=== PATIENT | male | born 1965 | race Caucasian/White ===

== ENCOUNTER 2017-06-08 07:35 | Day surgery (SDC) | payer OTHER ==
[~2017-06-08 07:35] MED LIST: DOCU100; FERROUS SULPHATE; FLUO20; HYDACE5; METCAR750 PO; METH10; QUET200; SPIHYD; SULF10OPSA OD
== END 2017-06-08 23:20 | disposition home or self-care (01) ==
LOC: MOI US 07:35
PROC: 07B53ZX Excision of Right Axillary Lymphatic, Percutaneous Approach, Diagnostic (ICD-10-PCS; principal; 2017-06-08)
DX: R59.0 Localized enlarged lymph nodes (principal)
CPT/HCPCS: 38505; 76942; 88305; 88312; A4648

== ENCOUNTER 2019-04-22 15:19 | Emergency (ER) | payer OTHER ==
[~2019-04-22] VITALS: Ht 180.3 cm; Wt 86.2 kg
[~2019-04-22 15:19] MED LIST changes: +ASCO500 PO; -DOCU100; +DOCU100 PO; -FERROUS SULPHATE; +Ferrousul325 MG PO; -HYDACE5; +Hydrocodone-Ap1 EA20 PO; +LEVSOD25 PO; +LITH300ER PO; +MELA3 PO; +MIRALAX17 GM PO; +OMEPRAZOLE20 MG PO; +RISP2 PO; +SERT100 PO; +TRAZ100 PO; +Vitamin D2000 UNIT PO
[2019-04-22 16:22] LABS: BASOPHILS ABSOLUTE AUTO 0.07 K/mm3 (0.00-0.23); BASOPHILS PERCENT AUTO 2 % (0-2); EOSINOPHILS ABSOLUTE AUTO 0.29 K/mm3 (0.00-0.68); EOSINOPHILS PERCENT AUTO 7 % (0-6); Hematocrit 29.2 % (37.0-53.0); Hemoglobin 9.3 g/dL (13.5-17.5); IMMATURE GRAN ABSOLUTE AUTO 0.06 K/mm3 (0.00-0.10); IMMATURE GRAN PERCENT AUTO 1 % (0-1); LYMPHOCYTES ABSOLUTE AUTO 1.84 K/mm3 (0.84-5.20); LYMPHOCYTES PERCENT AUTO 42 % (21-46); MONOCYTES ABSOLUTE AUTO 0.74 K/mm3 (0.16-1.47); MONOCYTES PERCENT AUTO 17 % (4-13); Mean Corpuscular HGB 30.8 pg (26.0-34.0); Mean Corpuscular HGB Conc 31.8 g/dL (31.5-36.5); Mean Corpuscular Volume 97 fL (80-100); Mean Platelet Volume 9.5 fL (9.1-12.4); NEUTROPHILS PERCENT AUTO 32 % (41-73); Platelet Count 277 K/mm3 (150-400); RDW Coefficient Variation 19.7 % (11.7-14.2); RDW Standard Deviation 70.6 fL (35.1-46.3); Red Blood Cell Count 3.02 M/mm3 (4.30-5.90)
[2019-04-22 16:35] LABS: Alanine Aminotransfer (ALT/SGP 29 U/L (12-78); Albumin, Blood 2.2 g/dL (3.4-5.0); Albumin/Globulin Ratio 0.5 (0.8-1.8); Alk Phos 88 U/L (50-136); Anion Gap 0 mmol/L (6-16); Aspartate Aminotrans (AST/SGOT 29 U/L (12-37); Bilirubin, Total 0.2 mg/dL (0.1-1.0); Blood Urea Nitrogen 14 mg/dL (8-24); Bun/Creatinine Ratio 41.9 (12.0-20.0); CO2, Blood 27 mmol/L (21-32); Chloride, Blood 111 mmol/L (98-108); Creatinine, Blood 0.33 mg/dL (0.60-1.20); Globulin, Blood 4.1 g/dL (2.2-4.0); Glomerular Filtration Rate >60 (60-); Glucose, Blood 78 mg/dL (70-99); Potassium, Blood 4.4 mmol/L (3.5-5.5); Sodium, Blood 138 mmol/L (136-145); Total Protein, Blood 6.3 g/dL (6.4-8.2); Troponin I 0.017 ng/mL (0.000-0.040)
[2019-04-22 17:35] LABS: Source, Urine Voided
[2019-04-22 17:41] LABS: Bilirubin, Urine Neg (Neg); Blood, Urine Neg (Neg); Glucose Qualitative, Urine Neg (Neg); Ketones, Urine Neg (Neg); Leukocyte Esterase, Urine 1+ (Neg); Nitrite, Urine Neg (Neg); Protein, Urine 3+ (Neg); Urobilinogen, Urine 3+ (Normal)
[2019-04-22 18:26] LABS: Appearance, Urine Clear (Clear); Color, Urine Yellow (P-Yellow)
[2019-04-22 18:27] LABS: Bacteria Few /hpf; Squamous Epithelial Cells Rare /hpf (Few)
[2019-04-22] MEDS ORDERED: CEPH500 PO (19:00)
== END 2019-04-22 19:30 | disposition home or self-care (01) ==
LOC: ER 15:19
PROVIDERS: Emergency Medicine
DX: N39.0 Urinary tract infection, site not specified (principal); Z88.0 Allergy status to penicillin; Z79.899 Other long term (current) drug therapy; D64.9 Anemia, unspecified; E78.5 Hyperlipidemia, unspecified; I10 Essential (primary) hypertension; G47.30 Sleep apnea, unspecified; E66.9 Obesity, unspecified; F31.9 Bipolar disorder, unspecified; I25.2 Old myocardial infarction; E03.9 Hypothyroidism, unspecified; Z87.891 Personal history of nicotine dependence
CPT/HCPCS: 36415; 71046; 80053; 81001; 84484; 85025; 87081; 87430; 93005; 93010; 96361; 96365; 96375; 99284-25; J0696; J0780; J7030

== ENCOUNTER 2019-05-07 07:19 | Emergency (ER) | payer OTHER ==
[~2019-05-07] VITALS: Ht 180.3 cm; Wt 81.7 kg
[~2019-05-07 07:19] MED LIST changes: +CEPH500 PO
[2019-05-07 08:20] LABS: BASOPHILS ABSOLUTE AUTO 0.07 K/mm3 (0.00-0.23); BASOPHILS PERCENT AUTO 2 % (0-2); EOSINOPHILS PERCENT AUTO 4 % (0-6); Hematocrit 32.4 % (37.0-53.0); Hemoglobin 10.3 g/dL (13.5-17.5); IMMATURE GRAN ABSOLUTE AUTO 0.05 K/mm3 (0.00-0.10); IMMATURE GRAN PERCENT AUTO 1 % (0-1); LYMPHOCYTES ABSOLUTE AUTO 1.89 K/mm3 (0.84-5.20); LYMPHOCYTES PERCENT AUTO 41 % (21-46); MONOCYTES ABSOLUTE AUTO 0.57 K/mm3 (0.16-1.47); MONOCYTES PERCENT AUTO 12 % (4-13); Mean Corpuscular HGB 29.9 pg (26.0-34.0); Mean Corpuscular HGB Conc 31.8 g/dL (31.5-36.5); Mean Corpuscular Volume 94 fL (80-100); Mean Platelet Volume 9.7 fL (9.1-12.4); NEUTROPHILS ABSOLUTE AUTO 1.83 K/mm3 (1.96-9.15); NEUTROPHILS PERCENT AUTO 40 % (41-73); Platelet Count 243 K/mm3 (150-400); RDW Coefficient Variation 18.8 % (11.7-14.2); RDW Standard Deviation 64.7 fL (35.1-46.3); Red Blood Cell Count 3.44 M/mm3 (4.30-5.90); White Blood Cell Count 4.61 K/mm3 (4.00-11.30)
[2019-05-07 08:47] LABS: Alanine Aminotransfer (ALT/SGP 15 U/L (12-78); Albumin, Blood 2.4 g/dL (3.4-5.0); Albumin/Globulin Ratio 0.5 (0.8-1.8); Alk Phos 99 U/L (50-136); Anion Gap 5 mmol/L (6-16); Aspartate Aminotrans (AST/SGOT 18 U/L (12-37); Bilirubin, Total 0.2 mg/dL (0.1-1.0); Blood Urea Nitrogen 14 mg/dL (8-24); Bun/Creatinine Ratio 34.9 (12.0-20.0); CO2, Blood 29 mmol/L (21-32); Calcium, Blood 9.2 mg/dL (8.5-10.1); Chloride, Blood 107 mmol/L (98-108); Globulin, Blood 4.4 g/dL (2.2-4.0); Glomerular Filtration Rate >60 (60-); Glucose, Blood 84 mg/dL (70-99); Sodium, Blood 141 mmol/L (136-145); Total Protein, Blood 6.8 g/dL (6.4-8.2)
== END 2019-05-07 09:47 | disposition home or self-care (01) ==
LOC: ER 07:19
PROVIDERS: Emergency Medicine
DX: R11.2 Nausea with vomiting, unspecified (principal); E86.0 Dehydration; D64.9 Anemia, unspecified; E78.5 Hyperlipidemia, unspecified; I10 Essential (primary) hypertension; G47.30 Sleep apnea, unspecified; F31.9 Bipolar disorder, unspecified; Z88.0 Allergy status to penicillin; Z79.899 Other long term (current) drug therapy
CPT/HCPCS: 36415; 80053; 83690; 85025; 96361; 96374; 99284-25; J2405; J7120

== ENCOUNTER 2019-06-04 09:31 | Emergency (ER) | payer OTHER ==
[~2019-06-04] VITALS: Ht 180.3 cm; Wt 81.7 kg
[2019-06-04 10:25] LABS: BASOPHILS ABSOLUTE AUTO 0.12 K/mm3 (0.00-0.23); BASOPHILS PERCENT AUTO 1 % (0-2); EOSINOPHILS PERCENT AUTO 2 % (0-6); Hematocrit 30.9 % (37.0-53.0); Hemoglobin 9.6 g/dL (13.5-17.5); IMMATURE GRAN ABSOLUTE AUTO 0.19 K/mm3 (0.00-0.10); IMMATURE GRAN PERCENT AUTO 1 % (0-1); LYMPHOCYTES ABSOLUTE AUTO 0.86 K/mm3 (0.84-5.20); LYMPHOCYTES PERCENT AUTO 6 % (21-46); MONOCYTES ABSOLUTE AUTO 0.89 K/mm3 (0.16-1.47); MONOCYTES PERCENT AUTO 6 % (4-13); Mean Corpuscular HGB 29.4 pg (26.0-34.0); Mean Corpuscular HGB Conc 31.1 g/dL (31.5-36.5); Mean Corpuscular Volume 95 fL (80-100); Mean Platelet Volume 9.7 fL (9.1-12.4); NEUTROPHILS ABSOLUTE AUTO 11.72 K/mm3 (1.96-9.15); NEUTROPHILS PERCENT AUTO 83 % (41-73); Platelet Count 197 K/mm3 (150-400); RDW Coefficient Variation 20.7 % (11.7-14.2); RDW Standard Deviation 71.9 fL (35.1-46.3); Red Blood Cell Count 3.26 M/mm3 (4.30-5.90); White Blood Cell Count 14.08 K/mm3 (4.00-11.30)
[2019-06-04 10:39] LABS: Troponin I 0.017 ng/mL (0.000-0.040)
[2019-06-04 10:40] LABS: Alanine Aminotransfer (ALT/SGP 23 U/L (12-78); Albumin, Blood 2.4 g/dL (3.4-5.0); Albumin/Globulin Ratio 0.6 (0.8-1.8); Alk Phos 105 U/L (50-136); Anion Gap 2 mmol/L (6-16); Aspartate Aminotrans (AST/SGOT 28 U/L (12-37); Bilirubin, Total 0.2 mg/dL (0.1-1.0); Blood Urea Nitrogen 14 mg/dL (8-24); CO2, Blood 29 mmol/L (21-32); Calcium, Blood 8.9 mg/dL (8.5-10.1); Chloride, Blood 110 mmol/L (98-108); Creatinine, Blood 0.44 mg/dL (0.60-1.20); Globulin, Blood 4.2 g/dL (2.2-4.0); Glomerular Filtration Rate >60 (60-); Glucose, Blood 98 mg/dL (70-99); Potassium, Blood 4.2 mmol/L (3.5-5.5); Sodium, Blood 141 mmol/L (136-145); Total Protein, Blood 6.6 g/dL (6.4-8.2)
[2019-06-04 11:31] LABS: Source, Urine Clean Catch
[2019-06-04 11:49] LABS: Bilirubin, Urine Neg (Neg); Blood, Urine Neg (Neg); Glucose Qualitative, Urine Neg (Neg); Ketones, Urine 1+ (Neg); Leukocyte Esterase, Urine 1+ (Neg); Nitrite, Urine Neg (Neg); Protein, Urine 3+ (Neg); Specific Gravity, Urine 1.015 (1.003-1.022); Urobilinogen, Urine 2+ (Normal); pH, Urine 6.5 (5.0-8.0)
[2019-06-04 12:01] LABS: Appearance, Urine Clear (Clear); Color, Urine Yellow (P-Yellow)
[2019-06-04 12:04] LABS: Bacteria Few /hpf; Red Blood Cells, Urine 0-2 /hpf (0-2); Squamous Epithelial Cells Few /hpf (Few)
== END 2019-06-04 12:25 | disposition home or self-care (01) ==
LOC: ER 09:31
PROVIDERS: Emergency Medicine
DX: R55 Syncope and collapse (principal); S80.12XA Contusion of left lower leg, initial encounter; S80.11XA Contusion of right lower leg, initial encounter; I10 Essential (primary) hypertension; E78.5 Hyperlipidemia, unspecified; D64.9 Anemia, unspecified; G47.30 Sleep apnea, unspecified; F31.9 Bipolar disorder, unspecified; E66.9 Obesity, unspecified; Z87.891 Personal history of nicotine dependence; Z68.25 Body mass index [BMI] 25.0-25.9, adult; Z79.899 Other long term (current) drug therapy; W18.30XA Fall on same level, unspecified, initial encounter
CPT/HCPCS: 36415; 71045; 80053; 81001; 84484; 85025; 87086; 93005; 93010; 96360; 96361; 99284-25; A9270; J7030

== ENCOUNTER 2019-10-23 23:29 | Observation (INO) | payer OTHER ==
[~2019-10-23] VITALS: Ht 177.8 cm; Wt 73.9 kg
[2019-10-23 23:44] LABS: BASOPHILS ABSOLUTE AUTO 0.08 K/mm3 (0.00-0.23); BASOPHILS PERCENT AUTO 1 % (0-2); EOSINOPHILS ABSOLUTE AUTO 0.33 K/mm3 (0.00-0.68); EOSINOPHILS PERCENT AUTO 5 % (0-6); Hematocrit 27.9 % (37.0-53.0); Hemoglobin 8.4 g/dL (13.5-17.5); IMMATURE GRAN ABSOLUTE AUTO 0.05 K/mm3 (0.00-0.10); IMMATURE GRAN PERCENT AUTO 1 % (0-1); LYMPHOCYTES ABSOLUTE AUTO 1.34 K/mm3 (0.84-5.20); LYMPHOCYTES PERCENT AUTO 18 % (21-46); MONOCYTES ABSOLUTE AUTO 0.61 K/mm3 (0.16-1.47); MONOCYTES PERCENT AUTO 8 % (4-13); Mean Corpuscular HGB 27.8 pg (26.0-34.0); Mean Corpuscular HGB Conc 30.1 g/dL (31.5-36.5); Mean Corpuscular Volume 92 fL (80-100); Mean Platelet Volume 9.6 fL (9.1-12.4); NEUTROPHILS ABSOLUTE AUTO 4.96 K/mm3 (1.96-9.15); NEUTROPHILS PERCENT AUTO 67 % (41-73); Platelet Count 136 K/mm3 (150-400); RDW Coefficient Variation 20.6 % (11.7-14.2); RDW Standard Deviation 70.4 fL (35.1-46.3); Red Blood Cell Count 3.02 M/mm3 (4.30-5.90); White Blood Cell Count 7.37 K/mm3 (4.00-11.30)
[2019-10-24 00:06] LABS: Alanine Aminotransfer (ALT/SGP 24 U/L (12-78); Albumin, Blood 2.7 g/dL (3.4-5.0); Albumin/Globulin Ratio 0.7 (0.8-1.8); Alk Phos 81 U/L (50-136); Anion Gap 4 mmol/L (6-16); Aspartate Aminotrans (AST/SGOT 17 U/L (12-37); Bilirubin, Total 0.2 mg/dL (0.1-1.0); Blood Urea Nitrogen 22 mg/dL (8-24); Bun/Creatinine Ratio 44.4 (12.0-20.0); CO2, Blood 28 mmol/L (21-32); Calcium, Blood 8.7 mg/dL (8.5-10.1); Chloride, Blood 110 mmol/L (98-108); Globulin, Blood 3.8 g/dL (2.2-4.0); Glomerular Filtration Rate >60 (60-); Glucose, Blood 83 mg/dL (70-99); Potassium, Blood 4.6 mmol/L (3.5-5.5); Sodium, Blood 142 mmol/L (136-145); Total Protein, Blood 6.5 g/dL (6.4-8.2); Troponin I <0.015 ng/mL (0.000-0.040)
--- NOTE | 2019-10-24 06:10 | NUR ---
END OF SHIFT SUMMARY PT TO UNIT FROM ED. A&O X4. SLID OVER INTO PCU BED. NSR 60'S-70'S. VSS. PT ON 3L NC. SPO2 > 95%. NS RUNNING AT 75 MLS/HR. HR HAS REMAINED STABLE IN THE 70'S POST ADMISSION AND HAS BEEN RESTING QUIETLY. ADMISSION PACKET COMPLETED. PT HAS DENIED DIZZINESS OR SYNCOPE POST ARRIVAL TO UNIT. WILL CONTINUE TO MONITOR UNTIL END OF SHIFT. CALL LIGHT IN REACH.
[2019-10-24 11:42] LABS: BASOPHILS ABSOLUTE AUTO 0.08 K/mm3 (0.00-0.23); BASOPHILS PERCENT AUTO 1 % (0-2); EOSINOPHILS ABSOLUTE AUTO 0.34 K/mm3 (0.00-0.68); EOSINOPHILS PERCENT AUTO 4 % (0-6); Hematocrit 33.1 % (37.0-53.0); Hemoglobin 10.2 g/dL (13.5-17.5); IMMATURE GRAN ABSOLUTE AUTO 0.04 K/mm3 (0.00-0.10); IMMATURE GRAN PERCENT AUTO 1 % (0-1); LYMPHOCYTES ABSOLUTE AUTO 1.31 K/mm3 (0.84-5.20); LYMPHOCYTES PERCENT AUTO 15 % (21-46); MONOCYTES ABSOLUTE AUTO 0.44 K/mm3 (0.16-1.47); MONOCYTES PERCENT AUTO 5 % (4-13); Mean Corpuscular HGB 28.3 pg (26.0-34.0); Mean Corpuscular HGB Conc 30.8 g/dL (31.5-36.5); Mean Corpuscular Volume 92 fL (80-100); Mean Platelet Volume 9.6 fL (9.1-12.4); NEUTROPHILS ABSOLUTE AUTO 6.33 K/mm3 (1.96-9.15); NEUTROPHILS PERCENT AUTO 74 % (41-73); Platelet Count 160 K/mm3 (150-400); RDW Coefficient Variation 20.4 % (11.7-14.2); RDW Standard Deviation 68.5 fL (35.1-46.3); White Blood Cell Count 8.54 K/mm3 (4.00-11.30)
[2019-10-24 12:04] LABS: Alanine Aminotransfer (ALT/SGP 25 U/L (12-78); Albumin/Globulin Ratio 0.8 (0.8-1.8); Alk Phos 95 U/L (50-136); Anion Gap 4 mmol/L (6-16); Aspartate Aminotrans (AST/SGOT 20 U/L (12-37); Bilirubin, Total 0.4 mg/dL (0.1-1.0); Blood Urea Nitrogen 16 mg/dL (8-24); Bun/Creatinine Ratio 34.6 (12.0-20.0); CO2, Blood 29 mmol/L (21-32); Calcium, Blood 9.4 mg/dL (8.5-10.1); Chloride, Blood 110 mmol/L (98-108); Creatinine, Blood 0.46 mg/dL (0.60-1.20); Glomerular Filtration Rate >60 (60-); Glucose, Blood 80 mg/dL (70-99); Potassium, Blood 3.8 mmol/L (3.5-5.5); Sodium, Blood 143 mmol/L (136-145)
--- NOTE | 2019-10-24 12:05 | NUR ---
Patient is sitting up in bed and alert. Patient's spouse, Delia, enters patient's rm shortly after I arrive. They talk with me about patient's medical issues and the current struggle with his low BP. They tell me about patient's 7 yrs in the [employer], patient's many near experiences, their granddaugther's miraculous healing from blindness, and the challenges up ahead. They talk about their enmanuel and how they lean into God, their bahai family and biological family for strength. 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 Patient responds well and shows signs of reduced stress. I will continue to help both patient and Delia through the emotional/spiritual fears and concerns
[2019-10-24] MEDS ORDERED: OXYC5 PO (12:14)
[2019-10-24 12:22] LABS: Lithium 0.76 mmol/L (0.60-1.20)
[2019-10-24 16:27] LABS: Source, Urine Clean Catch
[2019-10-24 16:31] LABS: Bilirubin, Urine Neg (Neg); Blood, Urine Neg (Neg); Glucose Qualitative, Urine Neg (Neg); Ketones, Urine Neg (Neg); Leukocyte Esterase, Urine Neg (Neg); Nitrite, Urine Neg (Neg); Protein, Urine 3+ (Neg); Specific Gravity, Urine 1.015 (1.003-1.022); Urobilinogen, Urine NORM (Normal)
[2019-10-24 16:40] LABS: Appearance, Urine Clear (Clear); Color, Urine Pale Yellow (P-Yellow)
[2019-10-24 16:41] LABS: Bacteria Few /hpf; Red Blood Cells, Urine 0-2 /hpf (0-2); Squamous Epithelial Cells Few /hpf (Few); White Blood Cells, Urine 0-2 /hpf (0-5)
--- NOTE | 2019-10-24 18:27 | NUR ---
SHIFT SUMMARY PT IS ALERT AND ORIENTEDx4. TODAY PT ONLY HAD ONE SHORT EPISODE OF SINUS THOMAS IN MID 50'S, NO REPORTED SYMPTOMS AND PT WAS SITTING ON THE EDGE OF BED. TELEMETRY SHOWED PT TO BE IN NSR 70'S-80'S. VITALS HAVE REMAINED STABLE, PT WAS PLACED ON ROOM AIR TODAY WHEN PT WAS FULLY AWAKE. SPO2 WOULD DROP TO MID 80'S WHEN SLEEPING ON ROOM AIR.
--- NOTE | 2019-10-25 06:02 | NUR ---
END OF SHIFT SUMMARY NO ACUTE CHANGES THIS SHIFT. SPO2 >94% ON RA. VSS. PT ACCIDENTALLY PULLED OUT LEFT IV. NEW IV PLACED IN R FOREARM. PT C/O T/O THE NIGHT OF L RIB AND LOWER BACK PAIN. MEDICATED PER EMAR AND APPLIED HEAT PAD, WHICH PATIENT STATED PROVIDED SOME RELIEF. Q SHIFT BLADDER SCAN RESULTED IN 95 ML'S. CALL LIGHT IN REACH, BED IN LOWEST POSITION. WILL CONTINUE TO MONITOR UNTIL END OF SHIFT.
[2019-10-25 09:51] LABS: Albumin, Blood 2.9 g/dL (3.4-5.0); Anion Gap 2 mmol/L (6-16); Blood Urea Nitrogen 11 mg/dL (8-24); Bun/Creatinine Ratio 25.6 (12.0-20.0); CO2, Blood 30 mmol/L (21-32); Chloride, Blood 108 mmol/L (98-108); Creatinine, Blood 0.43 mg/dL (0.60-1.20); Glomerular Filtration Rate >60 (60-); Glucose, Blood 105 mg/dL (70-99); Phosphorus, Blood 2.7 mg/dL (2.5-4.9); Potassium, Blood 3.5 mmol/L (3.5-5.5); Sodium, Blood 140 mmol/L (136-145)
--- NOTE | 2019-10-25 09:53 | NUR ---
ASSUMED CARE PT ALERT AND ORIENTED VITALS STABLE THIS AM HRR NSR ONT HE 80'S, BP SYSTOLIC 120'S, SATS ABOVE 98% ON ROOMAIR, DENIES CHEST PAIN/PRESSURE, NO DIZZINESS. NO ACUTE CHANGE REPORTED, PAIN MEDS GIVE PRIOR TO SHIFT CHANGE FOR BACK PAIN, WILL MONITOR
--- NOTE | 2019-10-25 13:26 | NUR ---
PT DISCHARGED TO HOME TODAY WITH DISCHARGE ORDERS. PT WAS ABLE TO AMBULATE IN THE ROOM WITHOUT ASSIST. NO COMPLAINS OF PAIN, PT STATED HE USUALLY TAKES HIS OXYCODONE FOR BACK PAIN NEEDED. PT WAS INSTRUCTED WITH NEW MEDICATIONS AND INSTRUCTIONS. PT TO FOLLOW UP [facility] PROVID[facility] WITHIN 3 DAYS, WAS TOLD ABOUT PT'S NEED FOR SUPPLEMENTAL O2 2L AT NIGHT, STATED THEY [facility] GET THE [facility] AND WILL CALL THEM AT HOME TO ORDER. IT IS ALSO STATED ON THE DISCHARGE ORDER FOR O2 ORDER. PT WAS ACCOMPANIED FOR DISCHARGE VIA WHEELCHAIR.
== END 2019-10-25 13:28 | disposition home or self-care (01) ==
LOC: ER 23:29 → PCU 23:30
PROVIDERS: Emergency Medicine; Internal Medicine; ADMIT Internal Medicine
DX: R55 Syncope and collapse (principal); E86.0 Dehydration; E03.9 Hypothyroidism, unspecified; G47.33 Obstructive sleep apnea (adult) (pediatric); F31.9 Bipolar disorder, unspecified; K21.9 Gastro-esophageal reflux disease without esophagitis; M19.90 Unspecified osteoarthritis, unspecified site; G89.4 Chronic pain syndrome; F11.20 Opioid dependence, uncomplicated; R00.1 Bradycardia, unspecified; I95.9 Hypotension, unspecified; I10 Essential (primary) hypertension; E78.5 Hyperlipidemia, unspecified; Z85.72 Personal history of non-Hodgkin lymphomas; Z87.39 Personal history of other diseases of the musculoskeletal system and connective tissue; Z86.69 Personal history of other diseases of the nervous system and sense organs; Z79.899 Other long term (current) drug therapy; Z91.19 Patient's noncompliance with other medical treatment and regimen; Z88.0 Allergy status to penicillin; Z87.891 Personal history of nicotine dependence
CPT/HCPCS: 36415; 70450; 71045; 80053; 80069; 80178; 81001; 83880; 84443; 84484; 85025; 93005; 93010; 96361; 96372; 96374; 96375; 99285-25; G0378; J1650; J2405; J3010; J7030

== ENCOUNTER 2019-11-10 21:34 | Inpatient (IN) | payer OTHER ==
[~2019-11-10] VITALS: Ht 180.3 cm; Wt 82.0 kg
[~2019-11-10 21:34] MED LIST changes: +OXYC5 PO
[2019-11-10] MEDS ORDERED: ABILIFY MYCITE5 M1 PO (21:54)
[2019-11-10] MEDS ORDERED: Midodrine HCl10 MG PO (21:55)
[2019-11-10 22:04] LABS: BASOPHILS ABSOLUTE AUTO 0.09 K/mm3 (0.00-0.23); BASOPHILS PERCENT AUTO 1 % (0-2); EOSINOPHILS ABSOLUTE AUTO 0.31 K/mm3 (0.00-0.68); EOSINOPHILS PERCENT AUTO 3 % (0-6); Hematocrit 25.8 % (37.0-53.0); Hemoglobin 7.9 g/dL (13.5-17.5); IMMATURE GRAN ABSOLUTE AUTO 0.07 K/mm3 (0.00-0.10); IMMATURE GRAN PERCENT AUTO 1 % (0-1); LYMPHOCYTES ABSOLUTE AUTO 1.43 K/mm3 (0.84-5.20); LYMPHOCYTES PERCENT AUTO 15 % (21-46); MONOCYTES ABSOLUTE AUTO 0.71 K/mm3 (0.16-1.47); MONOCYTES PERCENT AUTO 8 % (4-13); Mean Corpuscular HGB 27.9 pg (26.0-34.0); Mean Corpuscular HGB Conc 30.6 g/dL (31.5-36.5); Mean Corpuscular Volume 91 fL (80-100); Mean Platelet Volume 9.7 fL (9.1-12.4); NEUTROPHILS ABSOLUTE AUTO 6.68 K/mm3 (1.96-9.15); NEUTROPHILS PERCENT AUTO 72 % (41-73); Platelet Count 147 K/mm3 (150-400); RDW Coefficient Variation 20.3 % (11.7-14.2); RDW Standard Deviation 68.8 fL (35.1-46.3); Red Blood Cell Count 2.83 M/mm3 (4.30-5.90); White Blood Cell Count 9.29 K/mm3 (4.00-11.30)
[2019-11-10 22:25] LABS: Troponin I <0.015 ng/mL (0.000-0.040)
[2019-11-10 22:27] LABS: Acetaminophen, Random <2.0 ug/mL (10.0-30.0); Ethanol (Alcohol), Blood, Med <3 mg/dL; Magnesium, Blood 2.4 mg/dL (1.6-2.4); Salicylate 4.4 mg/dL (2.8-20.0)
[2019-11-10 22:28] LABS: Alanine Aminotransfer (ALT/SGP 19 U/L (12-78); Albumin, Blood 2.5 g/dL (3.4-5.0); Albumin/Globulin Ratio 0.7 (0.8-1.8); Alk Phos 80 U/L (50-136); Anion Gap 6 mmol/L (6-16); Aspartate Aminotrans (AST/SGOT 15 U/L (12-37); Bilirubin, Total 0.2 mg/dL (0.1-1.0); Blood Urea Nitrogen 21 mg/dL (8-24); Bun/Creatinine Ratio 41.4 (12.0-20.0); CO2, Blood 26 mmol/L (21-32); Calcium, Blood 7.9 mg/dL (8.5-10.1); Chloride, Blood 112 mmol/L (98-108); Creatinine, Blood 0.51 mg/dL (0.60-1.20); Globulin, Blood 3.5 g/dL (2.2-4.0); Glomerular Filtration Rate >60 (60-); Glucose, Blood 37 mg/dL (70-99); Potassium, Blood 4.4 mmol/L (3.5-5.5); Sodium, Blood 144 mmol/L (136-145)
[2019-11-10 22:58] LABS: Source, Urine Clean Catch
[2019-11-10 23:05] LABS: Bilirubin, Urine Neg (Neg); Blood, Urine Neg (Neg); Glucose Qualitative, Urine Neg (Neg); Ketones, Urine Neg (Neg); Leukocyte Esterase, Urine Neg (Neg); Nitrite, Urine Neg (Neg); Protein, Urine 3+ (Neg); Urobilinogen, Urine 1+ (Normal)
[2019-11-10] MEDS ORDERED: ASPI81CH PO (23:11)
[2019-11-10 23:13] LABS: Amorphous Mod (0-Heavy); Appearance, Urine Clear (Clear); Bacteria Not Seen /hpf; Color, Urine Yellow (P-Yellow); Red Blood Cells, Urine Not Seen /hpf (0-2); Squamous Epithelial Cells Rare /hpf (Few); White Blood Cells, Urine Rare /hpf (0-5)
[2019-11-10 23:18] LABS: U Amphetamine Screen Not Detected; U Barbituate Screen Not Detected; U Benzodiazapine Screen Not Detected; U Buprenorphine Screen Not Detected; U Cannabinoids Screen DETECTED; U Cocaine Screen Not Detected; U Methadone Screen Not Detected; U Methamphetamine Screen Not Detected; U Opiates Screen Not Detected; U Oxycodone Screen DETECTED; U Phencyclidine Screen Not Detected; U Propoxyphene Screen Not Detected
[2019-11-11 00:07] LABS: Free Thyroxine 0.9 ng/dL (0.70-1.60); Thyroid Stimulating Hormone 4.55 uIU/mL (0.360-4.800); Triiodothyronine, Free 2.13 pg/mL (2.18-3.98)
[2019-11-11 04:12] LABS: Hematocrit 29.4 % (37.0-53.0); Hemoglobin 9.2 g/dL (13.5-17.5); Mean Corpuscular HGB 28.4 pg (26.0-34.0); Mean Corpuscular HGB Conc 31.3 g/dL (31.5-36.5); Mean Corpuscular Volume 91 fL (80-100); Mean Platelet Volume 9.3 fL (9.1-12.4); Platelet Count 151 K/mm3 (150-400); RDW Standard Deviation 67.3 fL (35.1-46.3); Red Blood Cell Count 3.24 M/mm3 (4.30-5.90)
--- NOTE | 2019-11-11 04:19 | NUR ---
ADMIT FROM ER PT ARRIVED FROM THE ER VIA GURNEY. HE WAS SLID OVER TO BED WITH NO ISSUES. HE IS ALERT AND ORIENTED ABLE TO COMMUNICATE HIS NEEDS. HE SATES THE ONLY PAIN HE HAS IS CHRONIC BACK PAIN. HE STATES HE WILL BE OK FOR A WHILE WITH NO PAIN MEDS. HE IS AWARE THAT HE RECIEVED NARCAN FOR HIS CONDITION AND IS UNDERSTANDING. VITALS ARE STABLE AT THIS TIME. BP IS ELEVATED CURRENTLY STATES IT GOES UP AND DOWN BUT HAS MOSTLY BEEN DOWN BECAUSE OF CHEMO TX. ATTEMPTED TO REVIEW MEDS WITH PT BUT HE WASN'T SURE OF WHAT HE TAKES AND WHEN HE TAKES THEM. WILL HAVE ONCOMING HAND SEWER SHOES WITH WHEN SHE COMES IN TODAY. PT HAS A CENTRAL LINE TO RIGHT IJ. DRESSING CDI WITH NO S/S OF INFECTION. PT DOES HAVE D10 RUNNING ORDERED. SEE EMAR. TWO PERIPHERAL IV'S IN PLACE AND BOTH SL. ABD IS ROUND AND SOFT NON-TENDER, HERNIA PRESENT. PAGAN CATH IN PLACE DRAINING CLEAR YELLOW URINE, NO S/S OF INFECTION. PT DOES NOT HAVE ANY WOUNDS PRESENT. LOTS OF BRUISING AT DIFFERENT STAGES OF HEALING. CALL LIGHT WAS REVIEWED WITH PT. HE IS VERY COOPERATIVE WITH CARE. WILL CON'T TO MONITOR AND KEEP HIM SAFE TILL REPORT TO ONCOMING RN.
[2019-11-11 04:29] LABS: Anion Gap 5 mmol/L (6-16); Blood Urea Nitrogen 16 mg/dL (8-24); Bun/Creatinine Ratio 45.6 (12.0-20.0); CO2, Blood 26 mmol/L (21-32); Calcium, Blood 7.5 mg/dL (8.5-10.1); Chloride, Blood 113 mmol/L (98-108); Creatinine, Blood 0.35 mg/dL (0.60-1.20); Glomerular Filtration Rate >60 (60-); Glucose, Blood 102 mg/dL (70-99); Potassium, Blood 4.1 mmol/L (3.5-5.5); Sodium, Blood 144 mmol/L (136-145)
--- NOTE | 2019-11-11 08:15 | NUR ---
INITIAL ASSESSMENT PATIENT RESTING QUIETLY IN BED UPON ENTERING ROOM. PATIENT ALERT AND ORIENTED X 4, AFEBRILE. PATIENT COMPLAINS OF CHRONIC BACK PAIN. PATIENT WEAK, 1 PA. PATIENT STATES HE USES WALKER AT BASELINE FOR SHORT DISTANCES. LUNGS CLEAR IN UPPER LOBES, CRACKLES NOTED IN LOWER LOBES. PATIENT DECREASED FROM 2 L NC TO RA AND REMAINS SATTING IN HIGH 90S. PATIENT STATES HE HAS A CHRONIC COUGH IN AM THAT SOMETIMES PRODUCES MODERATE AMOUNT OF THICK, GREEN SPUTUM. PATIENT IN SB TO SR WITH PACS. HR 50S TO 60S. SBP LOW 100S TO 120S. SCDS IN PLACE. PATIENT DENIES NAUSEA. PAGAN IN PLACE, DRAINING YELLOW COLORED URINE. PATIENT HAS SCATTERED BRUISES AND SCABS NOTED T/O. BLOOD SUGAR 75 THIS AM. D10 RESTARTED AT 100 MLS/ HOUR. BED LOW, CALL LIGHT IN REACH. WILL CONTINUE TO MONITOR PATIENT FREQUENTLY THROUGHOUT SHIFT.
--- NOTE | 2019-11-11 09:30 | NUR ---
ASSUMED CARE: REPORT RECIEVED FROM RABIA GAN. PT SITTING UP IN RECLINER WITH D10 RUNNING THROUGH CENTRAL LINE, RIGHT NECK. AT BEDSIDE. DENIES NEEDS OR CONCERNS AT THIS TIME.
--- NOTE | 2019-11-11 14:15 | NUR ---
PT TRANSFERRED TO PCU 6 VIA WHEEL CHAIR BY HOSPITAL STAFF. REPORT GIVEN TO RABIA GUILLEN. PT'S CENTRAL LINE DC'D PRIOR TO TRANSFER WITHOUT CONCERN. CHECKED WITH PHARMACY THAT D10 DOES NOT NEED SPECIAL ACCESS, IF PT NEEDS IT RESTARTED. CURRENT CBG 184 SO D10 DISCONNECTED WITH TRANSFER. MINDY AWARE TO RECHECK IN A COUPLE OF HOURS TO DETERMINE IF DRIP STILL NEEDED. FAMILY AT BEDSIDE AND AWARE OF NEW ROOM PLACEMENT.
--- NOTE | 2019-11-11 14:50 | NUR ---
BROUGHT VIA WHEELCHAIR TO PCU 6 FROM ICU. REPORT FROM RABIA TINAJERO. A/Marty/OX4 AT THIS TIME. SBA WHEN TRANSFERRING FROM WHEELCHAIR TO BED. DAUGHTER AT BEDSIDE. PLAN OF CARE REVIEWED. D10 DC'D AT THIS TIME, WILL CONTINUE TO MONITOR CHEMBG.VERBAL ORDER GIVEN BY DR. ROSA FOR CORISOL AND A1C LABS. LAB ORDER PLACED. VSS, CALL LIGHT IN REACH, WILL CONTINUE TO MONITOR.
--- NOTE | 2019-11-11 18:24 | NUR ---
SHIFT SUMMARY; ASSUMED CARE DURING SHIFT FROM ICU. A/A/OX4. VSS, D10 REMAINS DC'D. EATING WITHOUT DIFFICULTY, WILL CONTINUE TO MONITOR BLOOD SUGARS. INDEPENDANT IN ROOM WITH STANDBY ASSIST. NO ACUTE CHANGES AFTER MOVED TO PCU, WILL CONTINUE TO MONITOR AND TREAT UNTIL CHANGE OF SHIFT.
--- NOTE | 2019-11-11 20:00 | NUR ---
ASSUMED CARE AT AT 1900. REPORTS HX OF LT ARM CHRONIC PAIN AND IT SEEMS A LITTLE WEAKER THAN THE RT ARM. NOT NOTICED UPON ASSESS. VERY SENSITIVE SKIN OF LOWER EXT . NOTHING VISIBLE ONLY OLD SCAR AND FEW BLOTCHES OF DISCOLORED SKIN. PAS PLACED ON AGAIN AND NO DISCOMFORT. RESP EASY REGULAR. SR .
--- NOTE | 2019-11-12 04:44 | NUR ---
SHIFT SUMMARY. BLOOD SUGAR IS 96 , NOW. ATE MANY SNACKS THRU NOC. PAIN SCALE 6/10 PER BASELINE W/ CHRONIC LT SHOULDER , ARM FROM SHINGLES . AND CHRONIC BACK PAIN. PO MED FOR SOME ASSIST. LUNGS CLEAR NOW. ENC TURN COUGH AND DEEP BREATHE. TRIES TO STAY ON SIDE OCC., NO SKIN BREAKDOWN NOTED. STOOD UP AND WALKED AROUND THE BED THIS AM./ NOTED AREAS OF PETECHIA NEAR TAPE ON NECK. REPORTS HIS DOG SCRATCHES HIM. NOT THIS AREA . FORMER CENTRAL LINE SITE.SLEEPING WELL POST PAIN MED
--- NOTE | 2019-11-12 08:01 | NUR ---
ASSUMED CARE AT 0700, SITTING IN BED IN HIGH FOWLERS. A/A/OX4, DENIES NEEDS AT THIS TIME, REVIEWED PLAN OF CARE FOR DAY. WILL CONTINUE TO MONITOR.
--- NOTE | 2019-11-12 15:55 | NUR ---
DISHCHARGE INSTRUCTIONS REVIEWED WITH PT AND SPOUSE. DC'D TO HOME IN NO ACUTE DISTRESS.
== END 2019-11-12 15:42 | disposition home or self-care (01) | DRG 314 ==
LOC: ER 21:34 → ICUW 11-11 01:05 → PCU 11-11 14:12 → ENPENDDIS 11-12 13:39 → PCU 11-12 15:42
PROVIDERS: Emergency Medicine; ADMIT Internal Medicine
PROC: 02HV33Z Insertion of Infusion Device into Superior Vena Cava, Percutaneous Approach (ICD-10-PCS; principal; 2019-11-11)
DX: I95.9 Hypotension, unspecified (principal); G92 Toxic encephalopathy; F11.20 Opioid dependence, uncomplicated; Z85.71 Personal history of Hodgkin lymphoma; D64.9 Anemia, unspecified; F31.9 Bipolar disorder, unspecified; E78.5 Hyperlipidemia, unspecified; F17.210 Nicotine dependence, cigarettes, uncomplicated; Z98.84 Bariatric surgery status; Z79.82 Long term (current) use of aspirin
CPT/HCPCS: 36415; 51702; 71045; 80048; 80053; 81001; 82533; 82947; 83036; 83605; 83735; 83880; 84145; 84439; 84443; 84481; 84484; 85025; 85027; 87040; 93005; 93010; 96361; 96365; 96375; 96376; 99285-25; A9270-GY; C1751; G0480; J0696; J2310; J3370; J7030; J7050

== ENCOUNTER 2020-03-31 21:21 | Emergency (ER) | payer OTHER ==
[~2020-03-31] VITALS: Ht 182.9 cm; Wt 72.6 kg
[~2020-03-31 21:21] MED LIST changes: +ABILIFY MYCITE5 M1 PO; +ASPI81CH PO; +Midodrine HCl10 MG PO
[2020-03-31 21:53] LABS: BASOPHILS ABSOLUTE AUTO 0.07 K/mm3 (0.00-0.23); BASOPHILS PERCENT AUTO 0 % (0-2); EOSINOPHILS ABSOLUTE AUTO 0.27 K/mm3 (0.00-0.68); EOSINOPHILS PERCENT AUTO 2 % (0-6); Hematocrit 31.1 % (37.0-53.0); Hemoglobin 9.5 g/dL (13.5-17.5); IMMATURE GRAN ABSOLUTE AUTO 0.11 K/mm3 (0.00-0.10); IMMATURE GRAN PERCENT AUTO 1 % (0-1); LYMPHOCYTES ABSOLUTE AUTO 1.22 K/mm3 (0.84-5.20); LYMPHOCYTES PERCENT AUTO 7 % (21-46); MONOCYTES ABSOLUTE AUTO 1.28 K/mm3 (0.16-1.47); MONOCYTES PERCENT AUTO 7 % (4-13); Mean Corpuscular HGB 27.6 pg (26.0-34.0); Mean Corpuscular HGB Conc 30.5 g/dL (31.5-36.5); Mean Corpuscular Volume 90 fL (80-100); Mean Platelet Volume 10.3 fL (9.1-12.4); NEUTROPHILS ABSOLUTE AUTO 14.71 K/mm3 (1.96-9.15); NEUTROPHILS PERCENT AUTO 83 % (41-73); Platelet Count 211 K/mm3 (150-400); RDW Coefficient Variation 20.6 % (11.7-14.2); Red Blood Cell Count 3.44 M/mm3 (4.30-5.90); White Blood Cell Count 17.66 K/mm3 (4.00-11.30)
[2020-03-31 22:11] LABS: Alanine Aminotransfer (ALT/SGP 19 U/L (12-78); Albumin, Blood 2.5 g/dL (3.4-5.0); Albumin/Globulin Ratio 0.6 (0.8-1.8); Alk Phos 96 U/L (50-136); Anion Gap 5 mmol/L (6-16); Aspartate Aminotrans (AST/SGOT 20 U/L (12-37); Bilirubin, Total 0.4 mg/dL (0.1-1.0); Blood Urea Nitrogen 32 mg/dL (8-24); Bun/Creatinine Ratio 54.5 (12.0-20.0); CO2, Blood 35 mmol/L (21-32); Calcium, Blood 9.5 mg/dL (8.5-10.1); Chloride, Blood 97 mmol/L (98-108); Creatinine, Blood 0.59 mg/dL (0.60-1.20); Globulin, Blood 4.4 g/dL (2.2-4.0); Glomerular Filtration Rate >60 (60-); Glucose, Blood 92 mg/dL (70-99); Potassium, Blood 3.7 mmol/L (3.5-5.5); Sodium, Blood 137 mmol/L (136-145); Total Protein, Blood 6.9 g/dL (6.4-8.2)
[2020-04-01] MEDS ORDERED: Cleocin HCl150 MG PO (00:10)
== END 2020-04-01 00:33 | disposition home or self-care (01) ==
LOC: ER 21:21
PROVIDERS: Physician Assistant
DX: L03.115 Cellulitis of right lower limb (principal); I10 Essential (primary) hypertension; E78.5 Hyperlipidemia, unspecified; Z88.0 Allergy status to penicillin; Z79.82 Long term (current) use of aspirin; Z79.899 Other long term (current) drug therapy; Z87.891 Personal history of nicotine dependence
CPT/HCPCS: 80053; 83605; 85025; 93005; 93010; 96361; 96365; 99283-25; J7030